=== PATIENT | female | born 1935 | race Caucasian/White ===

== ENCOUNTER 2017-11-03 13:45 | Emergency (ER) | payer MEDICARE, BC ==
--- NOTE | 2017-11-03 13:59 | EDM.PDOC ---
ED HPI GENERAL MEDICAL PROBLEM - General Stated Complaint: POSS PNEUMONIA Time Seen by Provider: 11/03/17 13:45 Source of Information: Reports: Patient, RN History Limitations: Reports: Altered Mental Status, Physical Impairment - History of Present Illness INITIAL COMMENTS - FREE TEXT/NARRATIVE: 82 y.o.w.f with a H/O severe dementia Alzrubia dc came from the [facility] [place] to the ed becaue her sat were in the upper 80s. here in the ed, her o2 sat were 92. Pt has pharyngeal secretions. No family is present, pt is DNR/ DNI BP 133/51 Pulse ox 93% on RA, pulse 87 temp 98.7 Onset Date: 11/03/17 Onset Time: 07:00 Duration: Day(s):, Getting Worse, Intermittent Location: Reports: Chest Severity: Mild Improves with: Reports: Other (sitting up) Worsens with: Reports: Other (supine position) Associated Symptoms: Reports: Cough, Shortness of Breath - Related Data Allergies Allergy/AdvReac Type Severity Reaction Status Date / Time No Known Allergies Allergy Verified 11/03/17 13:49 Home Meds: Home Meds Acetaminophen [Acetaminophen Extra Strength] 1,000 mg PO 12,11/03/17 [History ] Multivitamin/Ferrous Gluconate [Multi-Delyn with Iron Liquid] 1 tbsp PO 12 11/03 [History] QUEtiapine [SEROquel] 12.5 mg PO ,20 11/03/17 [History] Sennosides/Docusate Sodium [Senna-S] 2 tab PO 12 11/03/17 [History] ED ROS GENERAL - Review of Systems Review Of Systems: Unable To Obtain (Dementia, Alzheimer's) ED EXAM, GENERAL - Physical Exam Exam: See Below Exam Limited By: Physical Impairment General Appearance: WD/WN, Obese Eye Exam: Bilateral Eye: Normal Inspection Ears: Normal External Exam Ear Exam: Bilateral Ear: Auricle Normal Nose: Normal Inspection, Normal Mucosa, No Blood Throat/Mouth: Normal Lips, Other (pharyngeal secretions) Head: Atraumatic, Normocephalic Neck: Normal Inspection, Supple, Non-Tender, Full Range of Motion Respiratory/Chest: No Respiratory Distress, Lungs Clear, Decreased Breath Sounds , Rhonchi Cardiovascular: Normal Peripheral Pulses, Regular Rate, Rhythm, No Edema, No JVD , No Murmur GI/Abdominal: Normal Bowel Sounds, Soft, Non-Tender, No Organomegaly, No Distention, No Abnormal Bruit, Pelvis Stable, Tender (Female) Exam: Deferred Rectal (Female) Exam: Deferred Back Exam: Normal Inspection, Full Range of Motion Extremities: Normal Inspection, Non-Tender, Normal Capillary Refill Neurological: Inattentive, Slow to Respond, Other (unable to ambulate) Psychiatric: Depressed Mood Skin Exam: Warm, Dry, Intact, Normal Color, No Rash Lymphatic: No Adenopathy Course - Vital Signs Text/Narrative:: 82 y.o.w.f with a H/O severe dementia Alzhimer's typ came from the [facility] [place] to the ed becaue her sat were in the upper 80s. here in the ed, her o2 sat were 92. Pt has pharyngeal secretions. No family is present, pt is DNR/ DNI BP 133/51 Pulse ox 93% on RA, pulse 87 temp 98.7 PE: 82 y.o w f with Dementia Alzheimer's typ came to the ed with pos asp pneumonia Labs: WBC 13K Imaging: CXR: NAD Impression: Oral secretions, Poss asp pneumonia Tx: Duoneb, suction of pharynx. Rocephin 1 gm IM Reexam: Improvement, Pt appeared to be better. Plan: D/C with instructions Last Recorded V/S: Last Vital Signs Temp 38.7 C H 11/03/17 14:50 Pulse 90 11/03/17 14:50 Resp 18 11/03/17 14:50 BP 122/45 L 11/03/17 14:50 Pulse Ox 93 L 11/03/17 14:50 - Orders/Labs/Meds Labs: Laboratory Tests 11/03/17 11/03/17 11/03/17 Range/Units 14:08 14:08 14:08 WBC 13.0 H (4.5-12.0) X10-3/uL RBC 4.45 (3.23-5.20) x10(6)uL Hgb 13.7 (11.5-15.5) g/dL Hct 41.0 (30.0-51.3) % MCV 92.1 (80-96) fL MCH 30.9 (27.7-33.6) pg MCHC 33.5 (32.2-35.4) g/dL RDW 12.6 (11.5-15.5) % Plt Count 221 (125-369) X10(3)uL MPV 9.0 (7.4-10.4) fL Add Manual Diff Yes Neutrophils % (Manual) 70 (46-82) % Band Neutrophils % 8 H (0-6) % Lymphocytes % (Manual) 9 L (13-37) % Monocytes % (Manual) 12 (4-12) % Basophils % (Manual) 1 (0-2) % Sodium 137 (135-145) mmol/L Potassium 3.6 (3.5-5.3) mmol/L Chloride 98 L (100-110) mmol/L Carbon Dioxide 30 (21-32) mmol/L BUN 13 (7-18) mg/dL Creatinine 1.0 (0.55-1.02) mg/dL Est Cr Clr Drug Dosing 37.45 mL/min Estimated GFR (MDRD) 53 L (>60) BUN/Creatinine Ratio 13.0 (9-20) Glucose 127 H (80-116) mg/dL Lactic Acid 2.1 (0.4-2.2) mmol/L Calcium 9.0 (8.6-10.2) mg/dL Meds: Medications Discontinued Medications Generic Name Dose Route Start Last Admin Trade Name Michaelq PRN Reason Stop Dose Admin Albuterol/Ipratropium 3 ml 11/03/17 14:18 11/03/17 14:36 Duoneb 3.0-0.5 Mg/3 Ml NEB 11/03/17 14:19 3 ml ONETIME ONE Administration Ceftriaxone Sodium 1,000 mg 11/03/17 15:07 11/03/17 15:10 Rocephin IVPUSH 11/03/17 15:08 1,000 mg ONETIME ONE Administration Ceftriaxone Sodium Confirm 11/03/17 15:09 11/03/17 15:18 Rocephin Administered 11/03/17 15:10 Not Given Dose 1,000 mg .ROUTE .STK-MED ONE Clindamycin HCl 150 mg 11/03/17 14:49 11/03/17 15:17 Cleocin PO 11/03/17 14:50 Not Given ONETIME STA Departure - Departure Time of Disposition: 14:54 Disposition: Home, Self-Care 01 Condition: Good Clinical Impression: Aspiration into airway Qualifiers: Encounter type: initial encounter Qualified Code(s): T17.908A - Unspecified foreign body in respiratory tract, part unspecified causing other injury, initial encounter - Discharge Information Referrals: Jaylen Hwang MD [Primary Care Provider] - Forms: ED Department Discharge Additional Instructions: please suction the upper airway twice daily, please give clindamycin 450 mg every 6 hours for 10 days. Please give a duoneb twice for 3 days, f/u, come back if your symptoms get worse acutely
[2017-11-03] MEDS ORDERED: Albuterol/Ipratropium 3.0-0.5 MG/3 ML Neb Soln NEB ONE (14:18)
--- NOTE | 2017-11-03 14:48 | CR ---
INDICATION: Aspirated. CHEST: An AP upright portable view of the chest was obtained 11/03/2017 and compared with 11/16/2011. The heart appears to be near the upper limits of normal in size. The aorta is tortuous with calcification in the arch. Overlying snaps are noted. A definite active infiltrate or effusion was not identified. IMPRESSION: No acute process. MTDD
[2017-11-03] MEDS ORDERED: Clindamycin HCl 150 MG Cap PO STA (14:49)
[2017-11-03] MEDS ORDERED: cefTRIAXone 1,000 MG VIAL IVPUSH ONE (15:07)
[2017-11-03] MEDS ORDERED: cefTRIAXone 1,000 MG VIAL ONE (15:09)
== END 2017-11-03 15:15 | disposition home or self-care (01) ==
LOC: FB.ED 13:45
DX: T17.908A Unspecified foreign body in respiratory tract, part unspecified causing other injury, initial encounter (principal)
CPT/HCPCS: 36415; 71045; 80048; 83605; 85025; 87040; 94640; 96372; 99285; J0696; J7620